=== PATIENT | male | born 1960 | race Caucasian/White ===

== ENCOUNTER 2019-01-13 08:42 | Outpatient (CLI) | payer OTHER ==
[2019-01-13 10:02] LABS: Basophils % (Auto) 0.6 % (0.0-1.8); Eosinophils % (Auto) 0.5 % (0.0-4.3); Hematocrit 46.5 % (35.5-45.6); Hemoglobin 15.2 gm/dl (11.8-15.2); Lymphocytes # (Auto) 1.8 K/mm3 (1.2-5.4); Lymphocytes % (Auto) 21.1 % (13.4-35.0); Mean Corpuscular HGB Conc 33 % (32-34); Mean Corpuscular Volume 89 fl (84-94); Monocytes # (Auto) 0.8 K/mm3 (0.0-0.8); Monocytes % (Auto) 9.6 % (0.0-7.3); Platelet Count 257 K/mm3 (140-440); Red Blood Count 5.25 M/mm3 (3.65-5.03); Red Cell Distribution Width 13.4 % (13.2-15.2)
[2019-01-13 10:19] LABS: Alanine Aminotransferase 30 units/L (7-56); BUN/Creatinine Ratio 14; Blood Urea Nitrogen 11 mg/dL (9-20); Chol/HDL Ratio 3.11 %; HDL Cholesterol 35 mg/dL (40-59); Hemolysis Index 0; LDL Cholesterol,Direct 63 mg/dL (50-130)
[2019-01-18 05:53] LABS: Vitamin D, 25-OH, D2 <4 ng/mL
== END 2019-01-13 08:43 | disposition home or self-care (01) ==
LOC: LAB 08:42
PROVIDERS: ATTEND Internal Medicine
DX: Z13.21 Encounter for screening for nutritional disorder (principal); E78.2 Mixed hyperlipidemia; E55.9 Vitamin D deficiency, unspecified; R73.9 Hyperglycemia, unspecified; I10 Essential (primary) hypertension
CPT/HCPCS: 36415; 80053; 80061; 82306; 82607; 83036; 84443; 85025

== ENCOUNTER 2019-06-16 09:04 | Outpatient (CLI) | payer OTHER | END 2019-06-16 09:05 | disposition home or self-care (01) | LOC: LAB 09:04 | PROVIDERS: ATTEND Internal Medicine | DX: I10 Essential (primary) hypertension (principal); E11.9 Type 2 diabetes mellitus without complications | CPT/HCPCS: 36415; 83036 ==

== ENCOUNTER 2019-09-18 15:38 | Emergency (ER) | payer OTHER ==
[2019-09-18 15:51] VITALS: BP 149/95
--- NOTE | 2019-09-18 17:36 | Emergency Department Report ---
ED ENT HPI - General Chief complaint: Sore Throat Stated complaint: THORN IN THROAT Time Seen by Provider: 09/18/19 17:14 Source: patient Mode of arrival: Ambulatory Limitations: Language Barrier - History of Present Illness Initial comments: This is a 58-year-old male who presents to the emergency room with a sensation of a foreign object in throat. Past medical history of hypertension. Patient states he was eating smita fish around 2:30 PM when he started to choke. He attempts to continue eating and felt pain and a sensation as if something was stuck in his throat. He think a fishbone stuck in his throat. Patient states he is able to drink liquids. There is some discomfort when he attempts to eat. He denies vomiting, vocal changes, or drooling. MD complaint: foreign body (To throat) -: This afternoon Time: 14:30 Location: throat Worsens with: swallowing, eating Associated Symptoms: pain with swallowing - Related Data Home Medications Medication Instructions Recorded Confirmed Last Taken Aspirin [Adult Low Dose Aspirin EC] 81 mg PO QDAY 01/30/16 01/30/16 Unknown Metoprolol Xl [Metoprolol 25 mg PO QDAY 01/30/16 01/30/16 Unknown SUCCINATE ER TAB] Pravastatin Sodium [Pravastatin] 40 mg PO QHS 01/30/16 01/30/16 Unknown amLODIPine 5 mg PO DAILY 01/30/16 01/30/16 Unknown Previous Rx's Medication Instructions Recorded Last Taken Type Famotidine [Pepcid] 20 mg PO BID #60 tablet 02/01/16 Unknown Rx lisinopriL [Zestril TAB] 20 mg PO QDAY #30 tablet 02/01/16 Unknown Rx Allergies Allergy/AdvReac Type Severity Reaction Status Date / Time No Known Allergies Allergy Unverified 01/29/16 18:55 ED Dental HPI - General Chief complaint: Sore Throat Stated complaint: THORN IN THROAT Time Seen by Provider: 09/18/19 17:14 Source: patient Mode of arrival: Ambulatory Limitations: Language Barrier - Related Data Home Medications Medication Instructions Recorded Confirmed Last Taken Aspirin [Adult Low Dose Aspirin EC] 81 mg PO QDAY 01/30/16 01/30/16 Unknown Metoprolol Xl [Metoprolol 25 mg PO QDAY 01/30/16 01/30/16 Unknown SUCCINATE ER TAB] Pravastatin Sodium [Pravastatin] 40 mg PO QHS 01/30/16 01/30/16 Unknown amLODIPine 5 mg PO DAILY 01/30/16 01/30/16 Unknown Previous Rx's Medication Instructions Recorded Last Taken Type Famotidine [Pepcid] 20 mg PO BID #60 tablet 02/01/16 Unknown Rx lisinopriL [Zestril TAB] 20 mg PO QDAY #30 tablet 02/01/16 Unknown Rx Allergies Allergy/AdvReac Type Severity Reaction Status Date / Time No Known Allergies Allergy Unverified 01/29/16 18:55 ED Review of Systems ROS: Stated complaint: THORN IN THROAT Other details as noted in HPI Constitutional: denies: chills, fever ENT: throat pain (Sensation of foreign body in throat). denies: ear pain Respiratory: denies: cough, shortness of breath, wheezing Cardiovascular: denies: chest pain, palpitations Gastrointestinal: denies: abdominal pain, nausea, diarrhea Musculoskeletal: denies: back pain, joint swelling, arthralgia Skin: denies: rash, lesions Neurological: denies: headache, weakness, paresthesias Psychiatric: denies: anxiety, depression ED Past Medical Hx - Past Medical History Previous Medical History?: Yes Hx Hypertension: Yes Hx Diabetes: Yes Additional medical history: HIGH CHOLESTEROL. "RAPID HR" - Surgical History Past Surgical History?: Yes Hx Cholecystectomy: Yes Additional Surgical History: CAROTID ENDARTERECTOMY - Social History Smoking Status: Never Smoker Substance Use Type: None - Medications Home Medications: Home Medications Medication Instructions Recorded Confirmed Last Taken Type Aspirin [Adult Low Dose Aspirin EC] 81 mg PO QDAY 01/30/16 01/30/16 Unknown History Metoprolol Xl [Metoprolol 25 mg PO QDAY 01/30/16 01/30/16 Unknown History SUCCINATE ER TAB] Pravastatin Sodium [Pravastatin] 40 mg PO QHS 01/30/16 01/30/16 Unknown History amLODIPine 5 mg PO DAILY 01/30/16 01/30/16 Unknown History Famotidine [Pepcid] 20 mg PO BID #60 tablet 02/01/16 Unknown Rx lisinopriL [Zestril TAB] 20 mg PO QDAY #30 tablet 02/01/16 Unknown Rx ED Physical Exam - General Limitations: Language Barrier General appearance: alert, in no apparent distress, obese - ENT ENT exam: Present: mucous membranes moist, TM's normal bilaterally, normal external ear exam. Absent: normal orophraynx (Erythematous posterior pharynx, trachea midline, no tongue elevation) - Neck Neck exam: Present: normal inspection - Respiratory Respiratory exam: Present: normal lung sounds bilaterally. Absent: respiratory distress - Cardiovascular Cardiovascular Exam: Present: regular rate, normal rhythm. Absent: systolic murmur, diastolic murmur, rubs, gallop - GI/Abdominal GI/Abdominal exam: Present: soft, normal bowel sounds. Absent: distended, tenderness, guarding, rebound, rigid - Extremities Exam Extremities exam: Present: normal inspection - Neurological Exam Neurological exam: Present: alert, oriented X3, normal gait - Psychiatric Psychiatric exam: Present: normal affect, normal mood - Skin Skin exam: Present: warm, dry, intact, normal color. Absent: rash ED Course Vital Signs 09/18/19 09/18/19 15:49 18:33 Temperature 98 F Pulse Rate 125 H 102 H Respiratory 16 16 Rate Blood Pressure 149/95 O2 Sat by Pulse 100 98 Oximetry ED Medical Decision Making - Radiology Data Radiology results: report reviewed Soft tissue neck, 2 views INDICATION: Dysphagia, possible foreign body FINDINGS: Prevertebral soft tissues are normal. The airway and epiglottis are unremarkable. Surgical clips are seen likely from left carotid endarterectomy. There is no foreign body seen. No abscess identified. No significant abnormality. - Medical Decision Making This is a 58-year-old male who presents to the emergency room with sensation of foreign body to throat. Patient in no acute distress. Trachea is midline no signs of foreign body. A x-ray of neck soft tissue was obtained. Findings of no foreign body seen. No abscess identified. No significant abnormality. Prevertebral soft tissues are normal. The airway and epiglottis are unremarkable. Surgical clips are seen likely from left carotid endarterectomy. Patient instructed to follow-up with PCP Dr. Borrero. Patient discharged home stable with strict return instructions. Critical care attestation.: If time is entered above; I have spent that time in minutes in the direct care of this critically ill patient, excluding procedure time. ED Disposition Clinical Impression: Sensation of foreign body in throat Disposition: DC-01 TO HOME OR SELFCARE Is pt being admited?: No Condition: Stable Additional Instructions: Seguimiento con smith mdico de atencin primaria en los prximos 2 a 3 espinoza. Regrese a la shania de emergencias si nota cambios vocales, babeo o dificultad para tragar. Follow-up with your primary care doctor in the next 2 to 3 days. Return to the emergency room if you notice vocal changes, drooling, or difficulty swallowing. Referrals: ROMAN BORRERO MD [Staff Physician] - 3-5 Days Time of Disposition: 18:20 Print Language: MALAYSIAN
--- NOTE | 2019-09-18 18:11 | XRay Report ---
Soft tissue neck, 2 views INDICATION: Dysphagia, possible foreign body FINDINGS: Prevertebral soft tissues are normal. The airway and epiglottis are unremarkable. Surgical clips are seen likely from left carotid endarterectomy. There is no foreign body seen. No abscess cherelle ntified. No significant abnormality. Signer Name: Esteban Calles MD Signed: 09/18/2019 6:07 PM Workstation Name: [id number]
== END 2019-09-18 18:33 | disposition home or self-care (01) ==
LOC: ED 15:38
DX: R09.89 Other specified symptoms and signs involving the circulatory and respiratory systems (principal); I10 Essential (primary) hypertension; E11.9 Type 2 diabetes mellitus without complications; E78.00 Pure hypercholesterolemia, unspecified; Z90.49 Acquired absence of other specified parts of digestive tract; Z79.899 Other long term (current) drug therapy; Z98.890 Other specified postprocedural states
CPT/HCPCS: 70360